=== PATIENT | female | born 1980 | race Caucasian/White ===

== ENCOUNTER 2017-07-12 08:23 | Emergency (ER) | payer SELFPAY ==
[2017-07-12] MEDS ORDERED: ACETAMINOPHEN 500 MG TAB ONE (10:45)
--- NOTE | 2017-07-12 11:20 | ER ---
Nurse's Notes [facility] Name: Glory Riggs Age: 37 yrs Sex: Female : 1980 Arrival Date: 07/12/2017 Time: 08:26 Bed 15 Private MD: None, None Diagnosis: Acute nasopharyngitis [common cold] Presentation: 07/12 08:55 Presenting complaint: Patient states: has had fever, sore throat, headache, body aches iw since yesterday. Transition of care: patient was not received from another setting of care. Onset of symptoms was July 12, 2017. Initial Sepsis Screen: Does the patient meet any 2 criteria? No. Patient's initial sepsis screen is negative. Does the patient have a suspected source of infection? No. Patient's initial sepsis screen is negative. Care prior to arrival: None. 08:55 Method Of Arrival: Ambulatory iw 08:55 Acuity: SANDEE 4 iw Triage Assessment: 09:07 General: Appears in no apparent distress. uncomfortable, Behavior is calm, cooperative, hj appropriate for age. Pain: Complains of pain in throat. Historical: - Allergies: 08:56 NKA; iw - Home Meds: 08:56 None [Active]; iw - PMHx: 08:56 None; iw - PSHx: 08:56 D \T\ C; iw - Immunization history:: Adult Immunizations. - Social history:: Smoking status: Patient/guardian denies using tobacco, Patient/guardian denies using alcohol. Screenin:07 Abuse screen: Denies threats or abuse. Denies injuries from another. Nutritional hj screening: No deficits noted. Tuberculosis screening: No symptoms or risk factors identified. Fall Risk None identified. Assessment: 09:45 General: Appears in no apparent distress. comfortable, Behavior is calm, cooperative, ch appropriate for age. Pain: Complains of pain in left frontal area, right frontal area, right eye, left eye, nose and throat Pain currently is 6 out of 10 on a pain scale. Pain began gradually. Neuro: No deficits noted. Respiratory: Reports cough that is non-productive, Airway is patent Respiratory effort is even, unlabored, Breath sounds are clear bilaterally. 09:45 GI: No signs and/or symptoms were reported involving the gastrointestinal system. : Reports pt states she thinks she has had a yeast infection for about 3 weeks. EENT: Reports nasal congestion pain since in very back of throat/nose, and eyes, worse since last night. Derm: Skin is pink, warm \T\ dry. 10:38 Reassessment: Patient appears in no apparent distress at this time. Patient and/or ch family updated on plan of care and expected duration. Pain level reassessed. Patient is alert, oriented x 3, equal unlabored respirations, skin warm/dry/pink. 11:24 Reassessment: Patient appears in no apparent distress at this time. Ramón page in room ch discussing dx, discharge, return precautions, and answering any questions the pt may have. pt states she feels much better after speaking with the provider. pt is much calmer now. 11:56 Reassessment: Patient appears in no apparent distress at this time. Patient and/or iw family updated on plan of care and expected duration. Pain level reassessed. Patient is alert, oriented x 3, equal unlabored respirations, skin warm/dry/pink. Vital Signs: 08:56 BP 104 / 62; Pulse 97; Resp 18 S; Temp 99.3(O); Pulse Ox 98% on R/A; Weight 77.11 kg; iw Height 5 ft. 10 in. (177.80 cm); Pain 5/10; 10:41 BP 109 / 72; Pulse 94; Resp 14; Pulse Ox 100% on R/A; mh5 11:24 BP 116 / 68; Pulse 71; Resp 16; Temp 98.9(O); Pulse Ox 99% on R/A; Pain 0/10; ch 08:56 Body Mass Index 24.39 (77.11 kg, 177.80 cm) ED Course: 08:26 Patient arrived in ED. mr 08:26 None, None is Private Physician. mr 08:52 River Moss, DOC is Primary Nurse. hj 08:56 Triage completed. iw 08:56 Arm band placed on. iw 09:07 Patient has correct armband on for positive identification. Bed in low position. Call light in reach. Side rails up X 1. 09:09 Ramón Cervantes PA is PHCP. cp 09:09 Ramón Lyles MD is Attending Physician. cp 10:36 Urine collected: clean catch specimen, clear. mh5 10:38 No apparent distress. Resting quietly. ch 10:38 Pulse ox on. NIBP on. ch 10:38 No provider procedures requiring assistance completed. 11:56 Patient did not have IV access during this emergency room visit. iw Administered Medications: 10:41 Drug: Tylenol 1000 mg Route: PO; ch 11:23 Follow up: Response: No adverse reaction; Marked relief of symptoms ch Outcome: 11:19 Discharge ordered by MD. marc 11:56 Discharged to home ambulatory, with family. iw 11:56 Condition: stable 11:56 Discharge instructions given to patient, family, Instructed on discharge instructions, follow up and referral plans. medication usage, Demonstrated understanding of instructions, follow-up care, medications, Prescriptions given X 1. 11:57 Patient left the ED. iw Signatures: Janay Moore RN RN ch Rivera, Maria mr Williams, Irene, RN RN iw Joaquin, Henry, RN RN hj Page, Corey, Barbie Brush cp mh5
--- NOTE | 2017-07-12 11:20 | EDPHYS ---
Physician Documentation [facility] Name: Glory Riggs Age: 37 yrs Sex: Female : 1980 Arrival Date: 07/12/2017 Time: 08:26 Bed 15 Private MD: None, None ED Physician Ramón Lyles HPI: 07/12 09:42 This 37 yrs old Female presents to ER via Ambulatory with complaints of Fever.cp 09:42 The patient reports fever, that was measured at 102 degrees Fahrenheit. cp 09:42 Onset: The symptoms/episode began/occurred yesterday. Associated signs and symptoms: cp Pertinent positives: headache, sore throat, body aches, Pertinent negatives: abdominal pain, cough, diarrhea, vomiting. Severity of symptoms: in the emergency department the symptoms have improved mildly. Historical: - Allergies: 08:56 NKA; iw - Home Meds: 08:56 None [Active]; iw - PMHx: 08:56 None; iw - PSHx: 08:56 D \T\ C; iw - Immunization history:: Adult Immunizations. - Social history:: Smoking status: Patient/guardian denies using tobacco, Patient/guardian denies using alcohol. ROS: 09:45 Constitutional: Positive for body aches, Negative for chills, fever, poor PO intake. cp 09:45 Eyes: Negative for injury, pain, redness, and discharge. cp 09:45 ENT: Positive for sore throat, Negative for drainage from ear(s), ear pain, sinus congestion, difficulty swallowing, difficulty handling secretions. 09:45 Neck: Negative for pain with movement, pain at rest, stiffness, tenderness. 09:45 Cardiovascular: Negative for chest pain. 09:45 Respiratory: Negative for cough, shortness of breath, wheezing. 09:45 Abdomen/GI: Negative for nausea, vomiting, and diarrhea, constipation, black/tarry stool, rectal bleeding. 09:45 : Negative for urinary symptoms. 09:45 Skin: Negative for cellulitis, rash. 09:45 Neuro: Positive for headache, Negative for altered mental status, dizziness, weakness. 09:45 All other systems are negative. Exam: 09:52 Constitutional: The patient appears in no acute distress, alert, awake, non-toxic, well cp developed, well nourished, anxious. 09:52 Head/Face: Normocephalic, atraumatic. cp 09:52 Eyes: Periorbital structures: appear normal, Pupils: equal, round, and reactive to light and accomodation, Extraocular movements: intact throughout, Conjunctiva: normal, no exudate, no injection, Sclera: no appreciated abnormality, Lids and lashes: appear normal, bilaterally. 09:52 ENT: External ear(s): are unremarkable, Ear canal(s): are normal, clear, TM's: are normal, no evidence of bulging, no erythema, Nose: is normal, Mouth: Lips: moist, Oral mucosa: pink and intact, moist, Posterior pharynx: Airway: no evidence of obstruction, patent, Tonsils: with erythema, no enlargement, no exudate, Uvula: midline, swelling, is not appreciated, erythema, that is mild, exudate, is not appreciated. 09:52 Neck: ROM/movement: is normal, is supple, without pain, no range of motions limitations, no meningismus, no nuchal rigidity. 09:52 Chest/axilla: Inspection: normal, Palpation: is normal, no crepitus, no tenderness. 09:52 Cardiovascular: Rate: normal, Rhythm: regular. 09:52 Respiratory: the patient does not display signs of respiratory distress, Respirations: normal, no use of accessory muscles, no retractions, no splinting, no tachypnea, labored breathing, is not present, Breath sounds: are clear throughout, no decreased breath sounds, no stridor, no wheezing. 09:52 Abdomen/GI: Inspection: abdomen appears normal, Bowel sounds: active, all quadrants, Palpation: abdomen is soft and non-tender, in all quadrants, rebound tenderness, is not appreciated, voluntary guarding, is not appreciated, involuntary guarding, is not appreciated. 09:52 Back: pain, is absent, ROM is normal. 09:52 Skin: cellulitis, is not appreciated, no rash present. 09:52 Neuro: Orientation: to person, place \T\ time. Mentation: lucid, able to follow commands, Cerebellar function: is grossly normal, Motor: moves all fours, strength is normal, Sensation: is normal, Gait: is steady, at a normal pace, without difficulty. Vital Signs: 08:56 BP 104 / 62; Pulse 97; Resp 18 S; Temp 99.3(O); Pulse Ox 98% on R/A; Weight 77.11 kg; iw Height 5 ft. 10 in. (177.80 cm); Pain 5/10; 10:41 BP 109 / 72; Pulse 94; Resp 14; Pulse Ox 100% on R/A; mh5 11:24 BP 116 / 68; Pulse 71; Resp 16; Temp 98.9(O); Pulse Ox 99% on R/A; Pain 0/10; ch 08:56 Body Mass Index 24.39 (77.11 kg, 177.80 cm) iw MDM: 09:09 Patient medically screened. cp 11:15 Data reviewed: vital signs, nurses notes, lab test result(s), and as a result, I will cp discharge patient. 11:15 Differential diagnosis: viral Infection, bacterial infection, URI, bronchitis, UTI, cp gastroenteritis, meningitis. Counseling: I had a detailed discussion with the patient and/or guardian regarding: the historical points, exam findings, and any diagnostic results supporting the discharge/admit diagnosis, lab results, to return to the emergency department if symptoms worsen or persist or if there are any questions or concerns that arise at home. Response to treatment: the patient's symptoms have mildly improved after treatment, and as a result, I will discharge patient. 07/12 09:41 Order name: Influenza Screen (a \T\ B); Complete Time: 10:40 07/12 10:40 Interpretation: Reviewed. 07/12 09:41 Order name: Strep; Complete Time: 10:40 07/12 10:40 Interpretation: Reviewed. 07/12 10:22 Order name: Throat Culture [facility] 07/12 10:42 Order name: Urine Dipstick--Ancillary (enter results) 07/12 10:42 Order name: Urine --Ancillary (enter results) 07/12 09:41 Order name: Urine Dipstick-Ancillary (obtain specimen) 07/12 09:41 Order name: Urine Test (obtain specimen) cp Administered Medications: 10:41 Drug: Tylenol 1000 mg Route: PO; ch 11:23 Follow up: Response: No adverse reaction; Marked relief of symptoms ch Disposition: 07/13 07:00 Co-signature as Attending Physician, Ramón Lyles MD I agree with the assessment and [place] plan of care. Disposition: 07/12/17 11:19 Discharged to Home. Impression: Acute nasopharyngitis [common cold]. - Condition is Stable. - Discharge Instructions: Pharyngitis, Viral Infections. - Prescriptions for Ibuprofen 800 mg Oral Tablet - take 1 tablet by ORAL route every 8 hours As needed take with food; 30 tablet. - Medication Reconciliation Form, Thank You Letter, Antibiotic Education, Prescription Opioid Use form. - Follow up: Private Physician; When: 2 - 3 days; Reason: Recheck today's complaints. - Problem is new. - Symptoms have improved. Signatures: Dispatcher [employer] EDMS Janay Moore, RN Ramón Laws ch, MD MD cha Williams, Irene RN River Kumar RN Ramón Gonzalez PA PA cp Corrections: (The following items were deleted from the chart) 07/12 11:20 11:19 07/12/2017 11:19 Discharged to Home. Impression: Acute upper respiratory cp infection, unspecified. Condition is Stable. Forms are Medication Reconciliation Form, Thank You Letter, Antibiotic Education, Prescription Opioid Use. Follow up: Private Physician; When: 2 - 3 days; Reason: Recheck today's complaints. Problem is new. Symptoms have improved. cp 11:57 11:20 07/12/2017 11:19 Discharged to Home. Impression: Acute nasopharyngitis [common iw cold]. Condition is Stable. Forms are Medication Reconciliation Form, Thank You Letter, Antibiotic Education, Prescription Opioid Use. Follow up: Private Physician; When: 2 - 3 days; Reason: Recheck today's complaints. Problem is new. Symptoms have improved. cp
[2017-07-12 12:07] VITALS: BP 116/68; TEMP 98.9; O2SAT 99
[2017-07-12 13:15] LABS: Urine Blood TRACE (NEG); Urine Glucose NEGATIVE (NEG); Urine Protein TRACE (NEG); Urine pH 7.5 (5.0-7.0)
== END 2017-07-12 11:57 | disposition home or self-care (01) ==
LOC: ER 08:23
DX: J00 Acute nasopharyngitis [common cold] (principal)
CPT/HCPCS: 81003; 81025; 87070; 87081; 87804; 99284

== ENCOUNTER 2020-02-04 08:44 | Emergency (ER) | payer SELFPAY ==
[2020-02-04] MEDS ORDERED: ONDANSETRON 4 MG (ODT) TAB ONE (09:39)
[2020-02-04] MEDS ORDERED: KETOROLAC 30 MG/ML INJ ONE (09:39)
[2020-02-04] MEDS ORDERED: HYDROCODONE/APAP 10/325 TAB ONE (09:39)
--- NOTE | 2020-02-04 10:14 | ER ---
Nurse's Notes [facility] Name: Glory Riggs Age: 39 yrs Sex: Female : 1980 Arrival Date: 02/04/2020 Time: 08:46 Bed 18 Private MD: Diagnosis: Pain in shoulder;Sprain of right coracohumeral (ligament) Presentation: 02/03 08:55 Chief complaint: Patient states: R shoulder pain that began a few days ago, but became ss much worse over night. Coronavirus screen: Client denies travel out of the [place] in the last 14 days. Ebola Screen: Patient denies exposure to infectious person. Patient denies travel to an Ebola-affected area in the 21 days before illness onset. Initial Sepsis Screen: Does the patient meet any 2 criteria? No. Patient's initial sepsis screen is negative. Does the patient have a suspected source of infection? No. Patient's initial sepsis screen is negative. Risk Assessment: Do you want to hurt yourself or someone else? Patient reports no desire to harm self or others. Onset of symptoms was February 01, 2020. 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 - Social history:: Smoking status: Patient reports the use of cigarette tobacco products, smokes one-half pack cigarettes per day. Screenin:55 Abuse screen: Denies threats or abuse. Denies injuries from another. Nutritional ss screening: No deficits noted. Tuberculosis screening: Never had TB. Fall Risk None identified. Assessment: 08:55 General: Appears uncomfortable, Behavior is anxious, tearful. . Pain: Complains of pain ss in R shoulder Pain currently is 9 out of 10 on a pain scale. Quality of pain is described as aching, tender, Pain began 2-3 days ago. Is continuous. Neuro: Level of Consciousness is awake, alert, obeys commands, Oriented to person, place, time, situation. Cardiovascular: Capillary refill < 3 seconds is brisk in bilateral fingers. Respiratory: Reports pain with respiration Respiratory effort is even, unlabored, Respiratory pattern is regular, symmetrical. GI: Patient currently denies abdominal pain, diarrhea, nausea, vomiting. : No signs and/or symptoms were reported regarding the genitourinary system. EENT: Nares are clear Oral mucosa is moist. Derm: Skin is intact, is healthy with good turgor, Skin is pink, warm \T\ dry. normal. Musculoskeletal: Circulation, motion, and sensation intact. Range of motion: intact in all extremities, Swelling absent. 10:00 Reassessment: Patient and/or family updated on plan of care and expected duration. Pain ll1 level reassessed. Patient is alert, oriented x 3, equal unlabored respirations, skin warm/dry/pink. Patient states feeling better. 10:30 Reassessment: Patient and/or family updated on plan of care and expected duration. Pain ll1 level reassessed. Musculoskeletal: Circulation, motion, and sensation intact. Capillary refill < 3 seconds, Range of motion: limited in right shoulder Tenderness present in right shoulder Reports pain in right shoulder. Vital Signs: 08:55 BP 140 / 87; Pulse 103; Resp 16; Temp 97.0(TE); Pulse Ox 100% on R/A; Weight 72.57 kg; ss Height 5 ft. 8 in. (172.72 cm); Pain 09/10; 10:30 BP 119 / 76; Pulse 83; Resp 17; Pulse Ox 97% ; Pain 5/10; ll1 08:55 Body Mass Index 24.33 (72.57 kg, 172.72 cm) ED Course: 08:46 Patient arrived in ED. ds1 08:55 Patient has correct armband on for positive identification. Bed in low position. Call ss light in reach. 08:57 Triage completed. ss 08:58 Arm band placed on right wrist. ss 09:12 Zohaib Whelan PA is PHCP. jr8 09:12 Ebenezer Whitehead MD is Attending Physician. jr8 09:18 Margaret Hernandez RN is Primary Nurse. ss 10:01 XRAY Shoulder RIGHT 2 view In Process Unspecified. EDMS 10:35 No provider procedures requiring assistance completed. Patient did not have IV access ll1 during this emergency room visit. Administered Medications: 09:28 Drug: TORadol 30 mg Route: IM; Site: left gluteus; ss 10:36 Follow up: Response: No adverse reaction; Pain is decreased; RASS: Alert and Calm (0) 1 09:28 Drug: Zofran (Ondansetron) 4 mg Route: PO; ss 10:36 Follow up: Response: No adverse reaction; Pain is decreased; RASS: Alert and Calm (0) 1 09:31 Drug: Imperial 10 mg-325 mg 1 tabs Route: PO; ss 10:36 Follow up: Response: No adverse reaction; Pain is decreased; RASS: Alert and Calm (0) 1 Outcome: 10:13 Discharge ordered by . 8 10:35 Patient left the ED. ll1 10:35 Discharged to home ambulatory. 1 10:35 Condition: stable 10:35 Discharge instructions given to patient, Instructed on discharge instructions, follow up and referral plans. medication usage, Demonstrated understanding of instructions, follow-up care, medications, Prescriptions given X 1. Signatures: Dispatcher [facility] Oneyda Carlos ds1 Margaret Hernandez, RN RN ss Zohaib Whelan PA PA jr8 Aris Castellanos RN RN ll1
--- NOTE | 2020-02-04 10:14 | EDPHYS ---
Physician Documentation [facility] Name: Glory Riggs Age: 39 yrs Sex: Female : 1980 Arrival Date: 02/04/2020 Time: 08:46 Bed 18 Private MD: ED Physician Ebenezer Whitehead HPI: 02/03 09:38 This 39 yrs old Female presents to ER via Ambulatory with complaints of Arm jr8 Pain-Injury Shoulder. 09:38 The patient or guardian complains of decreased range of motion, pain, that is acute, jr8 tenderness. right shoulder, right trapezius and right clavicle. Context: The problem was sustained at home, resulted from jumping over rail, The patient experiences decreased range of motion, when attempts to raise arm. Onset: The symptoms/episode began/occurred acutely, 3 day(s) ago. Modifying factors: the symptoms are alleviated by nothing. The symptoms are aggravated by movement. Associated signs and symptoms: The patient has no apparent associated signs or symptoms. Severity of symptoms: At their worst the symptoms were moderate, in the emergency department the symptoms are unchanged. The patient has not experienced similar symptoms in the past. The patient has not recently seen a physician. Patient stated that she tried to jump over railing. Stated that she felt arm pull back and pop. Was ok to start with but over the last few days has had marked increase in pain . 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 - Social history:: Smoking status: Patient reports the use of cigarette tobacco products, smokes one-half pack cigarettes per day. ROS: 09:38 Eyes: Negative for injury, pain, redness, and discharge, ENT: Negative for injury, jr8 pain, and discharge, Neck: Negative for injury, pain, and swelling, Cardiovascular: Negative for chest pain, palpitations, and edema, Respiratory: Negative for shortness of breath, cough, wheezing, and pleuritic chest pain, Abdomen/GI: Negative for abdominal pain, nausea, vomiting, diarrhea, and constipation, Back: Negative for injury and pain, Skin: Negative for injury, rash, and discoloration, Neuro: Negative for headache, weakness, numbness, tingling, and seizure. 09:38 MS/extremity: Positive for decreased range of motion, pain, tenderness, of the right arm. Exam: 09:38 Head/Face: Normocephalic, atraumatic. Eyes: Pupils equal round and reactive to light, jr8 extra-ocular motions intact. Lids and lashes normal. Conjunctiva and sclera are non-icteric and not injected. Cornea within normal limits. Periorbital areas with no swelling, redness, or edema. ENT: Nares patent. No nasal discharge, no septal abnormalities noted. Tympanic membranes are normal and external auditory canals are clear. Oropharynx with no redness, swelling, or masses, exudates, or evidence of obstruction, uvula midline. Mucous membranes moist. Neck: Trachea midline, no thyromegaly or masses palpated, and no cervical lymphadenopathy. Supple, full range of motion without nuchal rigidity, or vertebral point tenderness. No Meningismus. Cardiovascular: Regular rate and rhythm with a normal S1 and S2. No gallops, murmurs, or rubs. Normal PMI, no JVD. No pulse deficits. Respiratory: Lungs have equal breath sounds bilaterally, clear to auscultation and percussion. No rales, rhonchi or wheezes noted. No increased work of breathing, no retractions or nasal flaring. Abdomen/GI: Soft, non-tender, with normal bowel sounds. No distension or tympany. No guarding or rebound. No evidence of tenderness throughout. Back: No spinal tenderness. No costovertebral tenderness. Full range of motion. Skin: Warm, dry with normal turgor. Normal color with no rashes, no lesions, and no evidence of cellulitis. Neuro: Awake and alert, GCS 15, oriented to person, place, time, and situation. Cranial nerves II-XII grossly intact. Motor strength 5/5 in all extremities. Sensory grossly intact. Cerebellar exam normal. Normal gait. 09:38 Chest/axilla: Inspection: normal, Palpation: tenderness, that is moderate, of the right clavicle. 09:38 Musculoskeletal/extremity: Extremities: grossly normal except: noted in the right arm: Moderate tenderness to right anterior shoulder and clavicle region with decreased ROM. No obvious external trauma noted, Pulses: noted to be 2+ in the right radial artery and left radial artery, Sensation intact. Vital Signs: 08:55 BP 140 / 87; Pulse 103; Resp 16; Temp 97.0(TE); Pulse Ox 100% on R/A; Weight 72.57 kg; ss Height 5 ft. 8 in. (172.72 cm); Pain 09/10; 10:30 BP 119 / 76; Pulse 83; Resp 17; Pulse Ox 97% ; Pain 5/10; ll1 08:55 Body Mass Index 24.33 (72.57 kg, 172.72 cm) ss Procedures: 10:11 Splinting: Splint applied to right shoulder using sling, applied by nurse. Examined by jr8 me, post splint application: neurovascular intact, 2+ distal pulses palpable, brisk capillary refill noted, Patient tolerated well. MDM: 09:12 Patient medically screened. jr8 10:10 Data reviewed: vital signs, nurses notes, radiologic studies, plain films, and as a jr8 result, I will discharge patient. Data interpreted: Pulse oximetry: on room air is 100 %. Interpretation: normal. Counseling: I had a detailed discussion with the patient and/or guardian regarding: the historical points, exam findings, and any diagnostic results supporting the discharge/admit diagnosis, radiology results, the need for outpatient follow up, a family practitioner, to return to the emergency department if symptoms worsen or persist or if there are any questions or concerns that arise at home. Response to treatment: the patient's symptoms have markedly improved after treatment. 02/03 09:23 Order name: XRAY Shoulder RIGHT 2 view jr8 02/03 10:11 Order name: Sling; Complete Time: : jr8 Administered Medications: : Drug: TORadol 30 mg Route: IM; Site: left gluteus; ss 10:36 Follow up: Response: No adverse reaction; Pain is decreased; RASS: Alert and Calm (0) 1 09:28 Drug: Zofran (Ondansetron) 4 mg Route: PO; ss 10:36 Follow up: Response: No adverse reaction; Pain is decreased; RASS: Alert and Calm (0) 1 09:31 Drug: [place] 10 mg-325 mg 1 tabs Route: PO; ss 10:36 Follow up: Response: No adverse reaction; Pain is decreased; RASS: Alert and Calm (0) ll1 Disposition: 11:03 Co-signature as Attending Physician, Ebenezer Whitehead MD. rn Disposition: 02/04/20 10:13 Discharged to Home. Impression: Pain in shoulder, Sprain of right coracohumeral (ligament). - Condition is Stable. - Discharge Instructions: Shoulder Pain. - Prescriptions for Tramadol 50 mg Oral Tablet - take 1 tablet by ORAL route every 8 hours as needed; 16 tablet. - Medication Reconciliation Form, Thank You Letter, Antibiotic Education, Prescription Opioid Use form. - Follow up: Private Physician; When: 1 week; Reason: Recheck today's complaints, Continuance of care, Re-evaluation by your physician. - Problem is new. - Symptoms have improved. Signatures: Dispatcher [employer] EDEbenezer Henderson MD MD rn Smirch, Shelby, RN RN ss Roszak, Josh, CHRISTOPHER PA jr8 Aris Castellanos RN RN ll1 Corrections: (The following items were deleted from the chart) 10:35 10:13 02/04/2020 10:13 Discharged to Home. Impression: Pain in shoulder; Sprain of ll1 right coracohumeral (ligament). Condition is Stable. Forms are Medication Reconciliation Form, Thank You Letter, Antibiotic Education, Prescription Opioid Use. Follow up: Private Physician; When: 1 week; Reason: Recheck today's complaints, Continuance of care, Re-evaluation by your physician. Problem is new. Symptoms have improved. jr8
--- NOTE | 2020-02-04 10:42 | RAD REPORT ---
EXAM DESCRIPTION: Shoulder Right 2 View - 02/04/2020 10:01 am CLINICAL HISTORY: PAIN COMPARISON: No comparisons TECHNIQUE: Internal and external rotation views of the right shoulder were obtained. FINDINGS: There is no fracture or dislocation. AC joint is normal in appearance. No acute or suspic ious findings. IMPRESSION: Negative two-view right shoulder examination.
[2020-02-04 11:04] VITALS: BP 140/87; TEMP 97; O2SAT 100
== END 2020-02-04 10:35 | disposition home or self-care (01) ==
LOC: ER 08:44
DX: S43.411A Sprain of right coracohumeral (ligament), initial encounter (principal); F17.210 Nicotine dependence, cigarettes, uncomplicated; X58.XXXA Exposure to other specified factors, initial encounter; Y93.89 Activity, other specified; Y92.009 Unspecified place in unspecified non-institutional (private) residence as the place of occurrence of the external cause
CPT/HCPCS: 96372; 99283

== ENCOUNTER 2020-06-16 20:23 | Emergency (ER) | payer SELFPAY ==
[2020-06-16 22:12] LABS: Urine Blood Trace-intact (Negative); Urine Glucose Negative (Negative); Urine Protein Negative (Negative); Urine Specific Gravity 1.015 (1.005-1.030)
[2020-06-16] MEDS ORDERED: MORPHINE 4 MG/ML SYR ONE (22:26)
[2020-06-16 22:27] LABS: Absolute Lymphocytes (CBC) 3.2 K/uL (0.7-4.9); Basophils % 0.3 % (0-1.3); Hematocrit 39.7 % (36.0-45.0); MPV 6.8 fL (7.6-11.3); RBC Red Blood Cell Count 4.37 M/uL (3.86-4.86)
[2020-06-16] MEDS ORDERED: ONDANSETRON 4 MG/2 ML VIAL ONE ×2 (22:27→23:52)
[2020-06-16 22:45] LABS: Urine Specific Gravity/Preg 1.015 (1.005-1.030)
[2020-06-16 22:52] LABS: ALT/SGPT 38 U/L (12-78); AST/SGOT 18 U/L (15-37); Albumin 3.9 g/dL (3.4-5.0); Alkaline Phosphatase 77 U/L (45-117); BUN Blood Urea Nitrogen 13 mg/dL (7-18); Bicarbonate 26 mmol/L (21-32); Bilirubin Direct < 0.1 mg/dL (0-0.2); Bilirubin Total 0.2 mg/dL (0.2-1.0); Glucose Level 95 mg/dL (74-106); Lipase 826 U/L (73-393); Potassium 3.8 mmol/L (3.5-5.1); Protein, Total 7.4 g/dL (6.4-8.2); Sodium Level 138 mmol/L (136-145)
[2020-06-16] MEDS ORDERED: KETOROLAC 30 MG/ML INJ ONE (23:30)
[2020-06-16] MEDS ORDERED: NA CHLORIDE 0.9% 1,000 ML ONE (23:40)
--- NOTE | 2020-06-17 00:41 | ER ---
Nurse's Notes [facility] Name: Glory Riggs Age: 40 yrs Sex: Female : 1980 Arrival Date: 06/16/2020 Time: 20:26 Bed 7 Private MD: Diagnosis: Epiploic Appendagitis Presentation: 06/16 21:01 Chief complaint: Patient states: Suprapubic pain started yesterday. Hurts to walk, ca1 hurts to sit, hurts to reposition. Denies V/D. Reports nausea. Denies urinary symptoms. Coronavirus screen: Client denies travel out of the [place] in the last 14 days. nausea, Client presents with at least one sign or symptom that may indicate coronavirus-19. Standard/surgical mask placed on the client. Provider contacted for isolation considerations. Ebola Screen: Patient negative for fever greater than or equal to 101.5 degrees Fahrenheit, and additional compatible Ebola Virus Disease symptoms Patient denies exposure to infectious person. Patient denies travel to an Ebola-affected area in the 21 days before illness onset. No symptoms or risks identified at this time. Initial Sepsis Screen: Does the patient meet any 2 criteria? No. Patient's initial sepsis screen is negative. Does the patient have a suspected source of infection? No. Patient's initial sepsis screen is negative. Risk Assessment: Do you want to hurt yourself or someone else? Patient reports no desire to harm self or others. Onset of symptoms was June 16, 2020. 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 - Social history:: Smoking status: Patient reports the use of cigarette tobacco products, smokes one-half pack cigarettes per day. Screenin:25 Abuse screen: Denies threats or abuse. Denies injuries from another. Nutritional mg2 screening: No deficits noted. Tuberculosis screening: No symptoms or risk factors identified. Fall Risk IV access (20 points). Assessment: 22:24 General: Appears in no apparent distress. uncomfortable, Behavior is calm, cooperative. mg2 Pain: Complains of pain in abdomen Pain does not radiate. Pain currently is 10 out of 10 on a pain scale. Quality of pain is described as aching, Pain began gradually, Is intermittent. Neuro: Level of Consciousness is awake, alert, obeys commands, Oriented to person, place, time, situation. Cardiovascular: Capillary refill < 3 seconds. Respiratory: Airway is patent Respiratory effort is even, unlabored, Respiratory pattern is regular, symmetrical. GI: Reports bloating, nausea. : No signs and/or symptoms were reported regarding the genitourinary system. EENT: No signs and/or symptoms were reported regarding the EENT system. Derm: Skin is intact, is healthy with good turgor, Skin is pink, warm \T\ dry. normal. Musculoskeletal: Circulation, motion, and sensation intact. Capillary refill < 3 seconds. 23:49 Reassessment: Patient appears in no apparent distress at this time. Patient and/or mg2 family updated on plan of care and expected duration. Pain level reassessed. Patient is alert, oriented x 3, equal unlabored respirations, skin warm/dry/pink. 06/17 00:57 Reassessment: Patient appears in no apparent distress at this time. mg2 Vital Signs: 04 21:01 BP 117 / 75; Pulse 104; Resp 16 S; Temp 96.3(TE); Pulse Ox 100% ; Weight 79.38 kg (R); ca1 Height 5 ft. 8 in. (172.72 cm) (R); Pain 7/10; 23:16 BP 121 / 79; Pulse 80; Resp 18; Pulse Ox 100% on R/A; mg2 21:01 Body Mass Index 26.61 (79.38 kg, 172.72 cm) ca1 ED Course: 20:26 Patient arrived in ED. bp1 21:02 Triage completed. ca1 21:03 Arm band placed on right wrist. ca1 21:48 Chad David PA is PHCP. jmm 21:48 Jad Samayoa MD is Attending Physician. jmm 21:56 Ananda Singer RN is Primary Nurse. mg2 22:26 Patient has correct armband on for positive identification. Pulse ox on. NIBP on. Door mg2 closed. Warm blanket given. 22:26 No provider procedures requiring assistance completed. Inserted saline lock: 20 gauge mg2 in left antecubital area, using aseptic technique. Blood collected. 22:44 Transvaginal Study Probe In Process Unspecified. EDMS 23:37 CT Abd/Pelvis - IV Contrast Only In Process Unspecified. EDMS 06/17 00:40 Ronaldo Weiner MD is Referral Physician. paige 00:57 IV discontinued, intact, bleeding controlled, No redness/swelling at site. Pressure mg2 dressing applied. Administered Medications: 06/16 22:24 Drug: morphine 4 mg Route: IVP; Site: left antecubital; mg2 06/17 00:43 Follow up: Response: No adverse reaction mg2 06/16 22:24 Drug: Zofran (Ondansetron) 4 mg Route: IVP; Site: left antecubital; mg2 06/17 00:43 Follow up: Response: No adverse reaction mg2 06/16 23:15 Drug: NS 0.9% 1000 ml Route: IV; Rate: 1 bolus; Site: left antecubital; mg2 06/17 00:43 Follow up: Response: No adverse reaction; IV Status: Completed infusion; IV Intake: mg2 1000ml 06/16 23:16 Drug: Ketorolac 30 mg Route: IVP; Site: left antecubital; mg2 06/17 00:43 Follow up: Response: No adverse reaction mg2 06/16 23:35 Drug: Zofran (Ondansetron) 4 mg Route: IVP; Site: left antecubital; mg2 06/17 00:43 Follow up: Response: No adverse reaction mg2 00:30 Drug: Dilaudid (HYDROmorphone) 1 mg Route: IVP; Site: left antecubital; mg2 00:43 Follow up: Response: No adverse reaction mg2 Intake: 00:43 IV: 1000ml; Total: 1000ml. mg2 Outcome: 00:41 Discharge ordered by . paige 00:58 Discharged to home via wheelchair. mg2 00:58 Condition: stable 00:58 Discharge instructions given to patient, Instructed on discharge instructions, follow up and referral plans. medication usage, Demonstrated understanding of instructions, follow-up care, medications, Prescriptions given X 5 00:58 Patient left the ED. mg2 Signatures: Dispatcher [employer] EDMS Mickail, Chad, PA PA jmm Gardose, Ananda, RN RN mg2 Earline Ott RN RN ca1 Alta Segal
--- NOTE | 2020-06-17 00:41 | EDPHYS ---
Physician Documentation [facility] Name: Glory Riggs Age: 40 yrs Sex: Female : 1980 Arrival Date: 06/16/2020 Time: 20:26 Bed 7 Private MD: ED Physician Jad Samayoa HPI: 06/16 21:56 This 40 yrs old Female presents to ER via Ambulatory with complaints of jmm Uterus Pain. 21:56 The patient presents with abdominal pain. Onset: The symptoms/episode began/occurred jmm gradually, today. The symptoms do not radiate. Associated signs and symptoms: Pertinent negatives: nausea and vomiting, diarrhea, dysuria, hematuria, nausea, shortness of breath, vaginal discharge, vomiting. The symptoms are described as achy, sharp. Modifying factors: The symptoms are alleviated by nothing, the symptoms are aggravated by nothing. The patient has not experienced similar symptoms in the past. 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 - Social history:: Smoking status: Patient reports the use of cigarette tobacco products, smokes one-half pack cigarettes per day. ROS: 21:56 Constitutional: Negative for fever, chills, and weight loss, Cardiovascular: Negative jmm for chest pain, palpitations, and edema, Respiratory: Negative for shortness of breath, cough, wheezing, and pleuritic chest pain. 21:56 Abdomen/GI: Positive for abdominal pain. 21:56 All other systems are negative. Exam: 21:56 Constitutional: This is a well developed, well nourished patient who is awake, alert, jmm and in no acute distress. Head/Face: atraumatic. Eyes: EOMI, no conjunctival erythema appreciated ENT: Moist Mucus Membranes Neck: Trachea midline, Supple Chest/axilla: Normal chest wall appearance and motion. Cardiovascular: Regular rate and rhythm. No edema appreciated Respiratory: Normal respirations, no respiratory distress appreciated 21:56 Abdomen/GI: Non distended, soft Back: Normal ROM Skin: General appearance color normal MS/ Extremity: Moves all extremities, no obvious deformities appreciated, no edema noted to the lower extremities Neuro: Awake and alert, normal gait Psych: Behavior is normal, Mood is normal, Patient is cooperative and pleasant 21:56 Abdomen/GI: Inspection: abdomen appears normal, Bowel sounds: normal, Palpation: soft, mild abdominal tenderness, in the suprapubic area. Vital Signs: 21:01 BP 117 / 75; Pulse 104; Resp 16 S; Temp 96.3(TE); Pulse Ox 100% ; Weight 79.38 kg (R); ca1 Height 5 ft. 8 in. (172.72 cm) (R); Pain 7/10; 23:16 BP 121 / 79; Pulse 80; Resp 18; Pulse Ox 100% on R/A; mg2 21:01 Body Mass Index 26.61 (79.38 kg, 172.72 cm) ca1 MDM: 21:56 Patient medically screened. [facility] 06/17 00:39 Data reviewed: vital signs, nurses notes. [facility] 00:39 Counseling: I had a detailed discussion with the patient and/or guardian regarding: the [facility] historical points, exam findings, and any diagnostic results supporting the discharge/admit diagnosis, lab results, radiology results, the need for outpatient follow up, to return to the emergency department if symptoms worsen or persist or if there are any questions or concerns that arise at home. ED course: Pain relieved in the ED. Patient is advised to follow up with pcp/gen surgery for reevaluation. Patient is otherwise given strict return precautions. patient understood and agrees with the plan of care. . 06/16 22:01 Order name: Basic Metabolic Panel; Complete Time: 22:55 [facility] 06/16 22:01 Order name: CBC with Diff; Complete Time: 22:28 [facility] 06/16 22:01 Order name: Hepatic Function; Complete Time: 22:55 [facility] 06/16 22:01 Order name: Lipase; Complete Time: 22:55 [facility] 06/16 22:12 Order name: Urine Dipstick-Ancillary; Complete Time: 22:19 [facility] 06/16 22:13 Order name: Urine --Ancillary (enter results); Complete Time: 22:52 ds4 06/16 22:38 Order name: CT Abd/Pelvis - IV Contrast Only [facility] 06/16 22:43 Order name: Transvaginal Study Probe [facility] 06/16 22:01 Order name: IV Saline Lock; Complete Time: 22:24 [facility] 06/16 22: Order name: Labs collected and sent; Complete Time: 22:24 [facility] 06/16 22:01 Order name: Urine Test (obtain specimen); Complete Time: 22:12 [facility] 06/16 22:01 Order name: Urine Dipstick-Ancillary (obtain specimen); Complete Time: 22:11 [facility] Administered Medications: 06/16 22:24 Drug: morphine 4 mg Route: IVP; Site: left antecubital; mg2 06/17 00:43 Follow up: Response: No adverse reaction [facility] 06/16 22:24 Drug: Zofran (Ondansetron) 4 mg Route: IVP; Site: left antecubital; mg2 06/17 00:43 Follow up: Response: No adverse reaction mg2 06/16 23:15 Drug: NS 0.9% 1000 ml Route: IV; Rate: 1 bolus; Site: left antecubital; mg2 06/17 00:43 Follow up: Response: No adverse reaction; IV Status: Completed infusion; IV Intake: mg2 1000ml 06/16 23:16 Drug: Ketorolac 30 mg Route: IVP; Site: left antecubital; mg2 06/17 00:43 Follow up: Response: No adverse reaction mg2 06/16 23:35 Drug: Zofran (Ondansetron) 4 mg Route: IVP; Site: left antecubital; mg2 06/17 00:43 Follow up: Response: No adverse reaction mg2 00:30 Drug: Dilaudid (HYDROmorphone) 1 mg Route: IVP; Site: left antecubital; mg2 00:43 Follow up: Response: No adverse reaction mg2 Disposition: 06/17/20 00:41 Discharged to Home. Impression: Epiploic Appendagitis. - Condition is Stable. - Discharge Instructions: Clear Liquid Diet, Adult. - Prescriptions for Bentyl 20 mg Oral Tablet - take 2 tablet by ORAL route every 6 hours As needed; 40 tablet. Ibuprofen 800 mg Oral Tablet - take 1 tablet by ORAL route every 8 hours As needed take with food; 30 tablet. Ultracet 37.5- 325 mg Oral Tablet - take 1 tablet by ORAL route every 6 hours - for up to 5 days; do not exceed 8 tablets per day.; 30 tablet. Pepcid 20 mg Oral Tablet - take 1 tablet by ORAL route once daily; 20 tablet. Zofran ODT 4 mg Oral tablet,disintegrating - place 1 tablet by TRANSLINGUAL route every 4-6 hours; 20 tablet. - Medication Reconciliation Form, Thank You Letter, Antibiotic Education, Prescription Opioid Use form. - Follow up: Ronaldo Weiner MD; When: 2 - 3 days; Reason: Recheck today's complaints, Continuance of care, Re-evaluation by your physician. Addendum: 07/07/2020 11:06 Co-signature as Attending Physician, Jad Samayoa MD. m a2 Signatures: Dispatcher [employer] [facility] Chad David PA PA jmm Alzahri, Mohammad, MD MD ma2 Ananda Singer, DOC RN mg2 Earline Ott RN RN ca1 Corrections: (The following items were deleted from the chart) 06/16 22:43 22:02 Pelvis Complete+US.RAD.BRZ ordered. [facility] 06/17 00:58 00:41 06/17/2020 00:41 Discharged to Home. Impression: Epiploic Appendagitis. Condition mg2 is Stable. Forms are Medication Reconciliation Form, Thank You Letter, Antibiotic Education, Prescription Opioid Use. Follow up: Ronaldo Weiner; When: 2 - 3 days; Reason: Recheck today's complaints, Continuance of care, Re-evaluation by your physician. joaquina
[2020-06-17] MEDS ORDERED: HYDROMORPHONE HCL 1 MG/ML INJ ONE (00:42)
[2020-06-17 01:04] VITALS: TEMP 96.3; O2SAT 100
[2020-06-17 01:05] VITALS: BP 121/79
--- NOTE | 2020-06-17 08:57 | RAD REPORT ---
EXAM DESCRIPTION: US - Transvaginal Study Probe - 06/16/2020 10:43 pm CLINICAL HISTORY: pelvic pain Pelvic pain. COMPARISON: TRANSVAGINAL STUDY PROBE dated 08/25/2014 FINDINGS: The uterus is normal in size, shape and echotexture. The uterus measures 8.9 x 4.7 x 4.5 c m. The endometrial stripe measures 4 mm, normal. Both ovaries are normal in size, shape and echotexture. The right ovary measures 2.1 x 2.0 cm. The left ovary measures 3.0 x 2.9 cm. 2 cm left ovarian follicle. No adnexal masses. Normal Doppler blood flow was demonstrated to both ovaries. No significant pelvic ascites. IMPRESSION: Unremarkable study.
--- NOTE | 2020-06-17 13:14 | RAD REPORT ---
EXAM DESCRIPTION: CT Abdomen and Pelvis COMPARISON: None. CLINICAL HISTORY: [facility] MAIN lower abdominal pain TECHNIQUE: CT of the abdomen and pelvis was acquired with IV contrast material. Coronal and sagitt al reconstructions were obtained. Automated exposure control was utilized on this examination as a dose lowering technique. FINDINGS: Lung bases: Clear. Liver: Normal. Gallbladder and biliary: Normal gallbladder. Unremarkable biliary tree. Pancreas: Normal. Spleen: Normal. Adrenal glands: Normal adrenal glands. Kidneys: Normal kidneys Stomach and Small Bowel: The stomach and small bowel are normal. Urinary bladder: Normal. Uterus and Adnexa: Normal. Colon and Appendix: There is mild sigmoid colonic wall thickening with adjacent focal fat stranding w ith fat halo on series 501 image 69. Only a few small possible diverticuli are noted. No evidence of appendicitis. Retroperitoneum and lymph nodes: Normal. Vascular: Normal. Peritoneal cavity: No ascites or free air. Musculoskeletal and soft tissues: Soft tissues are unremarkable. No aggressive bone lesions. No com pression fracture. IMPRESSION: Mild sigmoid colonic wall thickening with adjacent fat stranding has an appearance most consistent with epiploic appendagitis. Diverticulitis or less likely neoplasm could have a similar ap pearance. Consider colonoscopy if pain persists. Electronically signed by: Osvaldo Cline MD 06/17/2020 12:04 AM CDT Due to temporary technical issues with the PACS/Fluency reporting system, reports are being signed by the in house radiologists without review as a courtesy to insure prompt reporting. The interpreting radiologist is fully responsible for the content of the report.
== END 2020-06-17 00:58 | disposition home or self-care (01) ==
LOC: ER 20:23
DX: K63.89 Other specified diseases of intestine (principal); F17.210 Nicotine dependence, cigarettes, uncomplicated
CPT/HCPCS: 36415; 74177; 76830; 80048; 80076; 81003; 81025; 83690; 85025; 96361; 96374; 96375; 99284; J1170; J2405; J7030; Q9967